=== PATIENT | female | born 1990 | race Two or more races ===

== ENCOUNTER 2019-11-21 08:07 | Emergency (ER) | payer SELFPAY ==
[~2019-11-21] VITALS: Ht 160 cm; Wt 68.0 kg
[2019-11-21] MEDS: SODIUM CHLORIDE 0.9% 1,000 ML IV ONE ×2 (08:50→11:28)
[2019-11-21] MEDS ORDERED: LORazepam 0.5 MG TAB PO ONE ×2 (09:00→11:00)
[2019-11-21 09:12] LABS: Basophils # (auto) 0 uL; Basophils % (auto) 0.3 % (0.0-2.0); Eosinophils # (auto) 0 uL; Eosinophils % (auto) 0.1 % (0.0-7.0); Hematocrit 43.1 % (36.0-46.0); Hemoglobin 14.8 g/dL (12.2-16.2); Lymphocytes # (auto) 2.3 uL; Lymphocytes % (auto) 26.9 % (10.0-50.0); Mean Corpuscular Hemoglobin 29.8 pg (28.0-32.0); Mean Corpuscular Hgb Conc. 34.4 g/dL (32.0-36.0); Mean Corpuscular Volume 86.5 fL (80.0-100.0); Monocytes # (auto) 0.7 uL; Neutrophils # (auto) 5.6 uL; Neutrophils % (auto) 64.7 % (37.0-80.0); Nucleated Red Blood Cells % 0.1 %; Platelet Count (auto) 407 10^3/uL (140-450); Red Blood Cells 4.98 10^6/uL (4.0-5.20); Red Cell Distribution Width 12.3 % (11.8-14.3); White Blood Cell 8.7 10^3/uL (4.4-10.8)
[2019-11-21 09:16] LABS: Alcohol, Urine < 3.0 mg/dL (0-5); Amphetamine Screen, Urine NEGATIVE (NEGATIVE); Barbiturate Scree,Urine NEGATIVE (NEGATIVE); Benzodiazephine Screen, Urine NEGATIVE (NEGATIVE); Cannabinoid Screen, Urine POSITIVE (NEGATIVE); Phencyclidine Screen, Urine NEGATIVE (NEGATIVE)
[2019-11-21 09:25] LABS: Urine Bacteria FEW /hpf (None Seen); Urine Blood Negative /uL (Negative); Urine Mucus FEW (None Seen); Urine Specific Gravity 1.022 (1.001-1.035); Urine WBC 10 /hpf (0 - 5)
[2019-11-21 09:35] LABS: Albumin 4.5 g/dL (3.4-5.0); Calcium 9.2 mg/dL (8.5-10.1)
[2019-11-21 09:36] LABS: Cocaine Screen, Urine NEGATIVE (NEGATIVE); Opiate Scree,Urine NEGATIVE (NEGATIVE)
[2019-11-21 09:37] LABS: BUN/Creatinine Ratio 11.8
[2019-11-21 09:40] LABS: Bilirubin, Total 1.1 mg/dL (0.2-1.0); Total Protein 8.9 g/dL (6.4-8.2)
[2019-11-21 10:18] LABS: Salicylate 2.9 mg/dL (2.8-20.0)
[2019-11-21 10:19] LABS: Acetaminophen < 2.0 ug/mL (10-30)
[2019-11-21] MEDS ORDERED: POTASSIUM EFFERVESENT TAB 25 MEQ PO ONE (11:00)
[2019-11-21] MEDS ORDERED: LORazepam 2MG/ML-1ML VIAL ONE (11:09)
[2019-11-21] MEDS ORDERED: cefTRIAXone 1GM/50ML D5W 50 ML IV ONE (12:45)
[2019-11-21 18:20] VITALS: BP 136/88
== END 2019-11-21 18:27 | disposition home or self-care (01) ==
LOC: ER 08:07 → EDBD 08:07 → ER 18:27
DX: F19.959 Other psychoactive substance use, unspecified with psychoactive substance-induced psychotic disorder, unspecified (principal); F15.10 Other stimulant abuse, uncomplicated; N39.0 Urinary tract infection, site not specified
CPT/HCPCS: 36415; 80053; 80307; 80329; 81001; 81025; 83735; 85025; 93005; 96365; 96366; 99284; J0696; J2060; J7030